=== PATIENT | female | born 1945 | race Caucasian/White ===

== ENCOUNTER 2021-05-20 15:02 | Emergency (ER) | payer MEDICARE ==
[~2021-05-20 15:02] MED LIST: ALENDRONATE35 MG PO; ALENDRONATE70 MG PO; AMITRIPTYLIN100 MG PO; ATENOLOL50 MG PO; BENAZEPRIL10 M1 PO; CALCIUM + D600 MG PO; CALCIUM600 M1 OR; ENALAPRIL5 MG OR; FLUARIX QUADRIV1 IN1 IM; LORTAB 7.57.5 MG PO; MULT1 PO; MULTIVITAMI OR; OMEPRAZOLE20.6 MGDR PO; TENORMIN50 MG PO; ZOLOFT100 MG OR
[2021-05-20 16:23] VITALS: BP 131/74
[2021-05-20] MEDS ORDERED: MELOXICAM7.5 MG PO (16:35)
[2021-05-20] MEDS ORDERED: AMITRIPTYLINE100 MG PO (16:36)
== END 2021-05-20 16:23 | disposition home or self-care (01) ==
LOC: ED 15:02
PROC: 0HQNXZZ Repair Left Foot Skin, External Approach (ICD-10-PCS; principal; 2021-05-20)
DX: S91.012A Laceration without foreign body, left ankle, initial encounter (principal); I10 Essential (primary) hypertension; F32.9 Major depressive disorder, single episode, unspecified; W20.8XXA Other cause of strike by thrown, projected or falling object, initial encounter; Y93.G3 Activity, cooking and baking; Y92.000 Kitchen of unspecified non-institutional (private) residence as the place of occurrence of the external cause